=== PATIENT | female | born 1960 | race Caucasian/White ===

== ENCOUNTER → 2024-01-30 | Outpatient (CLI) | payer OTHER ==
[~2024-01-30] MED LIST: ALBU90OI6 INH; ALBU90OI61 INH; AZIT250 PO; BACLOFEN; BUPR100 PO; CIPR500 PO; CYCL10 PO; HYDACE5 PO; HYDACE5325 PO; HYDPAM25 PO; IBUP800 PO; KETO10 PO; LEVSOD75 PO; ONDA4ODT MM; ONDA8ODT MM; OXYC5 PO; PRED10 PO; PRED20 PO; PROM25 PO; RXTRAM50 PO; SYNTHROID; TRAM50 PO; [UNRECOGNIZED DRUG - REMARK]; [UNRECOGNIZED DRUG - REMARK]
== END | disposition home or self-care (01) ==
LOC: LAB SHORT 13:30 → LAB 13:30
DX: R35.0 Frequency of micturition (principal)
CPT/HCPCS: 87086

== ENCOUNTER → 2024-11-22 | Outpatient (CLI) | payer OTHER | LOC: LAB SHORT 18:50 → LAB 18:50 | DX: J02.9 Acute pharyngitis, unspecified (principal) | CPT/HCPCS: 87081 ==